=== PATIENT | male | born 1975 | race Caucasian/White ===

== ENCOUNTER 2018-04-03 03:14 | Inpatient (IN) | payer OTHER ==
[~2018-04-03] VITALS: Ht 175.3 cm; Wt 95.3 kg
[2018-04-03 03:17] VITALS: BP 119/82
--- NOTE | 2018-04-03 03:20 | NUR ---
TO BED # 2 AMBULATORY, REPORT GIVEN TO DARSHAN CAMARILLO.
--- NOTE | 2018-04-03 03:20 | NUR ---
42/M CAME IN W C/O 08/13 LT DENTAL PAIN AND SWELLING TO LEFT FACIAL X1 MONTH. PER PT HE HAS DENTAL APPT TOMORROW. DENIES OTHER PMH/RX. TOOK ASPIRIN YESTERDAY WITH MODERATE RELIEF OF SX
[2018-04-03] MEDS ORDERED: NACL 0.9% 500 ML IV SCH (04:56)
[2018-04-03] MEDS ORDERED: MORPHINE SULFATE 10 MG/ML SYR IVP ONE (05:00)
[2018-04-03] MEDS ORDERED: KETOROLAC 30 MG/ML VIAL IVP ONE (05:00)
[2018-04-03] MEDS ORDERED: AMPICILLIN/SULBACTAM 3 GM in NACL 0.9% MINI-BAG PLUS 100 ML IV ONE (05:00)
[2018-04-03] MEDS ORDERED: ONDANSETRON 4 MG/2 ML VIAL IVP ONE (05:00)
--- NOTE | 2018-04-03 05:00 | NUR ---
PT TAKEN TO CT
[2018-04-03] MEDS ORDERED: LORazepam 2 MG/ML VIAL IVP ONE (05:05)
[2018-04-03] MEDS ORDERED: MORPHINE SULFATE 2 MG/ML SYR ONE (05:20)
[2018-04-03] MEDS ORDERED: MORPHINE SULFATE 4 MG/ML SYR ONE (05:20)
[2018-04-03] MEDS ORDERED: AMPICILLIN/SULBACTAM 3 GM VIAL ONE (05:21)
[2018-04-03 06:07] LABS: BASOPHILS # (AUTO) 0.1 K/uL (0.00-0.22); BASOPHILS % (AUTO) 0.5 % (0.0-2.0); EOSINOPHILS # (AUTO) 0.3 K/uL (0-0.4); EOSINOPHILS % (AUTO) 2.4 % (0.0-4.0); HEMATOCRIT 45.1 % (36-52); LYMPHOCYTES # (AUTO) 2.3 K/uL (2.0-11.5); LYMPHOCYTES % (AUTO) 18.7 % (20.5-51.1); MEAN CORPUSCULAR HEMOGLOBIN 29 pg (27-31); MEAN CORPUSCULAR HGB CONC 33 g/dL (33-37); MEAN CORPUSCULAR VOLUME 86.8 fL (80-94); MONOCYTES % (AUTO) 8.2 % (1.7-9.3); NEUTROPHILS # (AUTO) 8.7 K/uL (1.8-7.7); NEUTROPHILS % (AUTO) 70.2 % (42.2-75.2); PLATELET COUNT (AUTO) 215 K/uL (140-450); RED CELL DISTRIBUTION WIDTH 13.8 % (11.6-13.7); WHITE BLOOD COUNT (AUTO) 12.4 K/uL (4.8-10.8)
[2018-04-03 06:15] LABS: ANION GAP 11.4 (8-16); CARBON DIOXIDE 26.3 mmol/L (21-32); CREATININE 0.9 mg/dL (0.7-1.3); POTASSIUM 3.7 mmol/L (3.5-5.1)
[2018-04-03 06:22] LABS: ALBUMIN 3.4 g/dL (3.4-5.0); TOTAL BILIRUBIN 0.8 mg/dL (0.0-1.0)
--- NOTE | 2018-04-03 06:30 | NUR ---
Patient appears to be resting comfortably in bed. Respirations even and unlabored. No further pain reported
--- NOTE | 2018-04-03 07:21 | NUR ---
Pt report given to KAITLYN CMAARILLO. Transfer of care at this time.
[2018-04-03] MEDS ORDERED: NACL 0.9% 1,000 ML IV SCH (07:23)
[2018-04-03] MEDS ORDERED: MORPHINE SULFATE 4 MG/ML SYR IVP PRN (07:25)
[2018-04-03] MEDS ORDERED: HYDROcodone/APAP 5/325 MG 1 TAB TAB PO PRN (07:25)
[2018-04-03] MEDS ORDERED: ONDANSETRON 4 MG/2 ML VIAL IVP PRN (07:25)
--- NOTE | 2018-04-03 07:25 | NUR ---
RECEIVED REPORT FOR PATIENT. PT APPERS TO BE RESTING COMFORTABLY AT THIS TIME. VSS. WILL CONTINUE TO MONITOR, PENDING ADMIT ORDERS.
--- NOTE | 2018-04-03 08:20 | NUR ---
RECEIVED PT FROM THE ER NURSE TRESSA AT BEDSIDE. PT IS AWAKE ALERT, AND ORIENTEDX4. PT IS MS, AMBULATORY, SKIN INTAC. CC:TOOTH PAIN. ALREADY RECEIVED MORPHINE AND TORADOL IN ER. LBM: 04/02/18, IV ON R WRIST 20G, PATENT INTACT AND ASYMPTOMATIC, SL. VITALS TAKEN, MRSA NARES SWAB DONE. DENIES ANY PAIN AT THIS TIME. BED IN LOWEST POSITION, CALL LIGHT WITHIN REACH. WILL CONTINUE TO MONITOR PT.
[2018-04-03 08:30] VITALS: BP 122/80
[2018-04-03] MEDS ORDERED: ENOXAPARIN 40 MG/0.4 ML SYR SUBQ SCH (09:00)
[2018-04-03] MEDS ORDERED: CLIN300C5 PO (11:18)
[2018-04-03] MEDS ORDERED: AMPICILLIN/SULBACTAM 3 GM in NACL 0.9% 100 ML IV SCH (12:00)
--- NOTE | 2018-04-03 12:48 | NUR ---
Clinical review faxed to [facility]. [phone]
--- NOTE | 2018-04-03 13:15 | NUR ---
PT DISCHARGED PER MD ORDERED. DISCHARGE INSTRUCTIONS AND MED TEACHING GIVEN. PT VERBALIZED UNDERSTANDING AND STATED WILL START ABX TONIGHT. PT DENIES ANY PAIN AT THIS TIME. IV DC'D, TIP INTACT, PRESSURE APPLIED. PT SAID HE HAS DENTAL APPOINTMENT AT 3PM. PT LEFT WITH ALL HIS BELONGINGS AND IN STABLE CONDITION. WHEELED PT TO FRONT LOBBY.
== END 2018-04-03 13:15 | disposition home or self-care (01) | DRG 383 ==
LOC: MED 03:14 → MTU 07:32
PROVIDERS: ADMIT Hospitalist; ATTEND Hospitalist
DX: L03.211 Cellulitis of face (principal); E83.51 Hypocalcemia; K08.89 Other specified disorders of teeth and supporting structures
CPT/HCPCS: 36415; 70486; 71045; 80053; 85025; 86140; 87081; 93005; 96365; 96366; 96375; 99285; J0295; J1650; J1885; J2060; J2270; J2405; J7030